=== PATIENT | male | born 1985 ===

== ENCOUNTER 2025-03-03 08:08 | Emergency (ER) | payer MEDICAID ==
[~2025-03-03] VITALS: Ht 167.6 cm; Wt 115.9 kg
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
[2025-03-03 09:04] LABS: CREATININE 0.76 MG/DL (0.60-1.10); TOTAL CARBON DIOXIDE 29.5 MMOL/L (24-32); eCRCL 119 ML/MIN; eGFR > 90 ML/MIN
[2025-03-03 09:08] LABS: ETHANOL < 10 MG/DL (<10)
[2025-03-03] MEDS: magnesium sulf-water 4G/100mL 100 ML IV ONE (09:15)
--- NOTE | 2025-03-03 09:24 | RADIOLOGY REPORT ---
CT CT HEAD INDICATION: Confusion COMPARISON: None TECHNIQUE: CT of the head without intravenous contrast. RADIATION DOSE: CTDIvol: 56 mGy, DLP: 996 mGy*cm FINDINGS: There is no evidence of acute intracranial hemorrhage, extra-axial collection, mass effect, midline shift, herniation or hydrocephalus. The ventricles, sulci and cisterns are age appropriate. The vasquez-white differentiation is intact. Opacification of the left maxillary sinus. The surrounding soft tissues and osseous structures are unremarkable. IMPRESSION: 1. No acute intracranial abnormality. 2. Left maxillary sinusitis.
[2025-03-03 09:54] LABS: MEAN PLATELET VOLUME 7.8 FL (7.4-10.4); RED CELL DISTRIBUTION WIDTH 14.8 % (11.5-14.5)
[2025-03-03] MEDS: POTASSIUM BICARB 20meq eff tab 20 MEQ TABLET.EFF PO ONE (10:03)
[2025-03-03 11:18] LABS: URINE AMPHETAMINE SCREEN NEGATIVE (Neg); URINE BARBITUATE SCREEN NEGATIVE (Neg); URINE BENZODIAZEPINES SCREEN NEGATIVE (Neg); URINE CANNABINOID SCREEN NEGATIVE (Neg); URINE COCAINE SCREEN NEGATIVE (Neg); URINE METHADONE SCREEN NEGATIVE (Neg); URINE OPIATE SCREEN NEGATIVE (Neg); URINE PHENCYCLIDINE SCREEN NEGATIVE (Neg)
--- NOTE | 2025-03-03 12:50 | ELECTROCARDIOGRAPH REPORT ---
[facility] Test Date: 2025-03-03 Test Time: 12:47:34 Pat Name: ROSA MORAN Department: [facility]-ER Patient ID: [facility]-[id number] Room: Gender: M [employer] Project Manager: : 1985 Requested By: BERNIE BYERS Order Number: [id number] Reading MD: Dr. Zach Solis Measurements Intervals [place] Rate: 76 P: 53 [place]: 150 QRS: 74 QRSD: 114 T: 20 QT: 438 QTc: 493 Interpretive Statements Sinus rhythm Inferolateral infarct, old Electronically Signed On 03-09-2025 7:51:[address] Zach Solis Please click the below link to view image of tracing.
[2025-03-03 13:16] VITALS: BP 178/111; PULSE 81; RESP 17; TEMP 97.9; O2SAT 98
== END 2025-03-03 13:19 | disposition home or self-care (01) ==
LOC: ER 08:10
DX: G45.4 Transient global amnesia (principal); I49.8 Other specified cardiac arrhythmias
CPT/HCPCS: 36415; 70450; 80048; 80076; 80305; 80320; 82948; 83735; 85025; 93005; 96365; 96366; 99285; J3475; J7050